=== PATIENT | male | born 1980 | race African-American/Black ===

== ENCOUNTER 2017-01-09 20:16 | Emergency (ER) | payer MEDICAID ==
[~2017-01-09] VITALS: Ht 170.2 cm; Wt 84.0 kg
[2017-01-09] MEDS ORDERED: PREDNISONE 20MG TABLET PO ONE (23:30)
[2017-01-09] MEDS ORDERED: KETOROLAC 60MG/2ML VIAL IM ONE (23:30)
[2017-01-09] MEDS ORDERED: ONDANSETRON HCL 4MG TABLET PO ONE (23:30)
[2017-01-09 23:55] VITALS: BP 120/74
== END 2017-01-10 00:45 | disposition home or self-care (01) ==
LOC: ER 20:17
DX: B34.9 Viral infection, unspecified (principal)
CPT/HCPCS: 87070; 87430; 96372; 99284; J1885; J7512; Q0162